=== PATIENT | male | born 1945 | race Caucasian/White ===

== ENCOUNTER 2019-05-04 11:41 | Emergency (ER) | payer MEDICARE, OTHER ==
[2019-05-04] MEDS ORDERED: TETANUS,DIPHTHERIA,PERTUSSIS 1 EA SYG IM ONE ×2 (12:06→14:20)
--- NOTE | 2019-05-04 12:16 | ED.PDOC ---
History of Present Illness - General Chief Complaint: Trauma Time Seen by Provider: 05/04/19 11:57 Source: patient, RN notes reviewed, Vital Signs reviewed, family Exam Limitations: no limitations - History of Present Illness Initial Comments: 73 yo male c/o neck pain. Onset was 3 weeks ago when he drove his lawnmower through a hole causing an axial load type injury. His neck has been hurting since then made worse by movement or swallowing. Radiates to the upper back. He has been to the chiropractor several times without relief. Yesterday he was raising his right arm above his head when he felt a popping sensation in his neck with burning & numbness to the right arm (no weakness).Today he was going to his PCP to have his neck evaluated when he fell while getting out of his car on uneven ground. He struck his head on the ground & aggravated his neck pain. He denies loss of consciousness or symptoms consistent with syncope/near syncope. Occurred: just prior to arrival Severity: mild Injuries/Pain Location: head, neck Reason for Fall: lost balance Loss of Consciousness: no loss of consciousness Improving Factors: nothing Worsening Factors: movement Associated Symptoms (Fall): other - see above Allergies/Adverse Reactions: Allergies NO KNOWN ALLERGY Allergy (Verified 05/04/19 11:55) Review of Systems - Review of Systems Constitutional: States: no symptoms reported EENTM: States: no symptoms reported Respiratory: States: no symptoms reported Cardiology: States: no symptoms reported Gastrointestinal/Abdominal: States: no symptoms reported Genitourinary: States: no symptoms reported Musculoskeletal: States: see HPI. Denies: back pain Skin: States: other - large fungating mass/wound to his scalp - chronic. New abrasion to his forehead region today. Neurological: States: no symptoms reported Hematologic/Lymphatic: States: no symptoms reported Past Medical History (General) - Patient Medical History Hx Stroke: No Hx of COPD: No Hx Cardiac Disorders: No Hx Congestive Heart Failure: No Hx Pacemaker: No Hx Hypertension: Yes Hx Thyroid Disease: No Hx Diabetes: No Surgical History: other - Vaccination History Hx Tetanus, Diphtheria Vaccination: Yes Hx Influenza Vaccination: No Hx Pneumococcal Vaccination: No Physical Exam - Physical Exam General Appearance: Alert, Comfortable, No apparent distress, Other - c-collar Head Injury: other - abrasion to forehead; large lesion to his scalp that appears consistent with a basal cell carcinoma - chronic Eye Exam: bilateral normal ENT Exam: hearing grossly normal, other - blood to lips & teeth but no injury noted. 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, no motor/sensory deficits, alert, normal mood/affect, oriented x 3 Skin Exam: normal color, warm/dry - Mariah Coma Score [place] Total: 15 Progress - Progress Progress: 05/04/19 14:30 Unchanged - EKG/XRAY/CT Xray Comments: CT head: right posterior frontal bleed with 3 mm shift; comminuted C2 fract CT Ordered: Yes - d/w radiologist - Consult/PCP Time Called: 14:31 Consult/PCP: [facility] Consult Reason/Comments: Transfer accepted Departure - Departure Clinical Impression: Cervical spine fracture Qualifiers: Encounter type: initial encounter Cervical vertebra fracture level: C2 Fracture type: closed Fracture morphology: other dens Fracture alignment: displaced Qualified Code(s): S12.120A - Other displaced dens fracture, initial encounter for closed fracture Intracerebral hemorrhage Qualifiers: Intracerebral hemorrhage etiology: traumatic Encounter type: initial encounter Laterality: right Loss of consciousness presence/duration: without LOC Qualified Code(s): S06.340A - Traumatic hemorrhage of right cerebrum without loss of consciousness, initial encounter Time of Disposition: 14:33 Disposition: Transfer to Hospital Critical Care Note - Critical Care Note Total Time (mins): 30 Transfer to Outside Facility - Transfer Information Accepting Facility: [facility] Reason for Transfer: required specialist not available
--- NOTE | 2019-05-04 14:14 | CT ---
EXAM DESCRIPTION: Head CLINICAL HISTORY: head injury COMPARISON: None available TECHNIQUE: Noncontrast head CT was performed with routine protocol. FINDINGS: Scalp injury with overlying saturated dressing in the high right parietal region. No underlying calvarial fracture. Left frontal scalp hematoma is present. No underlying frontal bone fracture. Ventricles and sulci are prominent consistent with age-related cerebral volume loss. Mass effect in the posterior right frontal region is seen with differential considerations including brain parenchymal hemorrhage, subacute infarction or neoplasm. MRI of the brain without and with contrast is recommended. There is mass effect on the right lateral ventricle. The sylvian fissure and right insular cortex are displaced toward the midline. There is midline shift toward the left measuring 3 mm. Posterior fossa structures appear normal. Low density areas in the white matter consistent with chronic microvascular ischemic changes. Coronal reformatted images are negative for evidence of uncal herniation. Midline shift at the level of the mid sella measures 5 mm on the coronal images. Normal orbital contents. Basilar cisterns appear clear. Intact calvarium with no fracture or lytic lesion. Normal aeration of tympanic cavities and mastoid air cells. No fluid levels in the paranasal sinuses. Skull base appears intact. Symmetrical internal auditory canals. I discussed the above results over the phone with Dr. Lerner in the Emergency Department at [facility] at 2:11 PM on 05/04/2019. IMPRESSION: Mass effect in the right posterior frontal region with 3 to 5 mm midline shift consistent with subacute brain parenchymal hemorrhage or subacute infarction. See above. This exam was performed according to our departmental dose-optimization program, which includes automated exposure control, adjustment of the mA and/or kV according to patient size and/or use of iterative reconstruction technique. Total DLP equals 967.47 mGycm. Electronically signed by: Forrest Martinez MD 05/04/2019 2:12 PM CDT
--- NOTE | 2019-05-04 14:21 | CT ---
EXAM DESCRIPTION: Cervical Spine CLINICAL HISTORY: fall with neck pain COMPARISON: None Available. TECHNIQUE: Cervical CT is performed with thin-section axial imaging. MPRs are created and reviewed as well. FINDINGS: Comminuted fracture of T2 including fracture lines at the base the dens with shift of ring of C1 anteriorly 1.1 cm. This narrows the spinal canal to 7 mm with compression of the upper cervical cord. Markedly comminuted fracture through the entire body below the dens as well as through left articular process and left pedicle. Findings are consistent with an unstable fracture. The above results were discussed with Dr. Lerner in the emergency department at 2:11 PM on 05/04/2019. The ring of C1 is intact. Normal relationship of occipital condyles and upper C1 articular surface. There is impaction of the fracture at C2. Lower vertebrae C3-T2 appear intact. Advanced degenerative disc disease at C5-6 with anterior and posterior spurring. Coronal and axial bone window images confirm the findings. IMPRESSION: Unstable comminuted impacted fracture of C2 with forward slippage of the dens fragment 1.1 cm and severe narrowing of the cervical spinal canal to 7 mm. See above. This exam was performed according to our departmental dose-optimization program, which includes automated exposure control, adjustment of the mA and/or kV according to patient size and/or use of iterative reconstruction technique. Total DLP equals 411.04 mGycm. Electronically signed by: Forrest Martinez MD 05/04/2019 2:18 PM CDT
[2019-05-04 14:33] VITALS: O2SAT 96
[2019-05-04 15:49] VITALS: BP 148/71; TEMP 98.7
== END 2019-05-04 15:43 | disposition short-term general hospital (02) ==
LOC: ER 11:41
DX: S12.110A Anterior displaced Type II dens fracture, initial encounter for closed fracture (principal); S06.340A Traumatic hemorrhage of right cerebrum without loss of consciousness, initial encounter; S60.511A Abrasion of right hand, initial encounter; S00.81XA Abrasion of other part of head, initial encounter; I10 Essential (primary) hypertension; Z23 Encounter for immunization; V48.4XXA Person boarding or alighting a car injured in noncollision transport accident, initial encounter; Y92.481 Parking lot as the place of occurrence of the external cause